=== PATIENT | male | born 1975 | race Hispanic/Latino ===

== ENCOUNTER 2023-01-16 15:52 | Observation (INO) | payer OTHER ==
[2023-01-16] MEDS ORDERED: LORazepam 2 MG/ML SYR.(CARPUJECT) ONE (16:08)
[2023-01-16 16:41] LABS: #Eosinphils 0.1 thou/uL (0.0-0.7); #Monocytes 0.7 thou/uL (0.11-0.59); #Neutrophils 3.7 thou/uL (1.40-6.50); %Basophils 0.4 % (0.0-1.0); %Eosinophils 1.3 % (0.0-10.0); %Lymphocytes 15.8 % (21.0-51.0); %Monocytes 12.4 % (0.0-10.0); %Neutrophils 69.2 % (42.0-75.0); Hematocrit 44.4 % (42.0-52.0); Hemoglobin 15.2 g/dL (14.0-18.0); Mean Corpuscular HGB CONC 34.2 g/dL (32.0-36.0); Mean Corpuscular Hemoglobin 31.6 pg (27.0-31.0); Mean Corpuscular Volume 92.3 fl (78.0-98.0); Mean Platelet Volume 10.3 fL (7.4-10.4); RBC Distribution Width 13.2 % (11.5-14.5); Red Blood Cell (RBC) Count 4.81 mill/uL (4.70-6.10); White Blood Cell (WBC) Count 5.3 10x3/uL (4.8-10.8)
[2023-01-16 16:42] LABS: Platelet Count 99 10x3/uL (130-400)
[2023-01-16 17:01] LABS: Acetaminophen Less than 10 mcg/mL (10.0-30.0); Alcohol Less than 10.0 mg/dL (Less than 10); Salicylate Less than 8.0 mg/dL (15.0-30.0)
[2023-01-16 17:08] LABS: ALT (SGPT) 128 U/L (8-55); AST (SGOT) 172 U/L (5-34); Albumin 4.4 g/dL (3.5-5.0); Alkaline Phosphatase 132 U/L (40-110); Anion Gap 23 mmol/L (10-20); BUN (Urea Nitrogen) Less than 4 mg/dL (8.9-20.6); Bilirubin, Total 1.8 mg/dL (0.2-1.2); CK (CPK) 568 U/L (30-200); Calc. Creatinine Clearance 0 mL/min (70-130); Calcium 9.1 mg/dL (7.8-10.44); Carbon Dioxide 18 mmol/L (22-29); Chloride 97 mmol/L (98-107); Estimated GFR 75; Globulin 3.1 g/dL (2.4-3.5); Glucose 182 mg/dL (70-105); Protein, Total 7.5 g/dL (6.0-8.3); Sodium 135 mmol/L (136-145)
[2023-01-16 17:10] LABS: Troponin I Less than 0.010 ng/mL (< 0.028)
[2023-01-16] MEDS ORDERED: Potassium Chloride 20 MEQ TAB ONE (17:26)
[2023-01-16 17:42] LABS: Bacteria/HPF None Seen HPF (None Seen); Bilirubin Negative (Negative); Blood, Urine Negative (Negative); CAUTI Indications for Culture Alt mental st,lethar; Clarity Clear (Clear); Glucose, Urine (Dipstick) 300 mg/dL (Negative); Ketone, Urine 10 mg/dL (Negative); Leukocyte Negative Leu/uL (Negative); Nitrite Negative (Negative); Protein, Urine (Dipstick) 20 mg/dL (Neg-Trace); RBC/HPF 0-3 HPF (0-3); Specific Gravity, Urine 1.011 (1.002-1.036); Squamous Epithelial None Seen HPF (0-3); Urobilinogen Normal mg/dL (Less than 2); WBC/HPF 0-3 HPF (0-3); pH, Urine 6.5 (5.0-9.0)
[2023-01-16 17:43] LABS: Urine Culture Reflex No No
[2023-01-16 17:48] LABS: Amphetamine Not Detected (NotDetected); Barbiturates Screen Not Detected (NotDetected); Benzodiazepine Screen Not Detected (NotDetected); Cocaine Metabolite Screen Not Detected (NotDetected); Methadone Not Detected (NotDetected); Methamphetamine Not Detected (NotDetected); Opiate Screen Not Detected (NotDetected); Oxycodone Screen Not Detected (NotDetected); Phencyclidine (PCP) Not Detected (NotDetected); THC/Cannabinoid Screen Not Detected (NotDetected); Tricyclic Screen Not Detected (NotDetected)
[2023-01-16] MEDS ORDERED: HYDROcodone/Acetaminophen 5/325 mg Tablet PO PRN (17:58)
[2023-01-16] MEDS ORDERED: Acetaminophen 325 MG TAB PO PRN (17:58)
[2023-01-16] MEDS ORDERED: Ondansetron PF 4 MG/2 ML Vial IVP PRN (17:58)
[2023-01-16] MEDS ORDERED: Lorazepam 1 MG TAB PO PRN (18:51)
[2023-01-16] MEDS ORDERED: Lorazepam 2 MG/ML VIAL IM PRN (18:51)
[2023-01-16] MEDS ORDERED: Potassium Chloride 20 MEQ TAB PO SCH (19:00)
[2023-01-16] MEDS ORDERED: Electrolyte Replacement Protocol 1 EACH FS SCH (19:00)
[2023-01-16] MEDS ORDERED: Magnesium 2 GM/50 ML(in water) 2 GM in Premix Bag 1 BAG IVPB SCH (19:00)
[2023-01-16] MEDS ORDERED: Sodium Bicarb 50 MEQ/50 ML Abboject 8.4% SYRINGE IVP SCH (19:15)
[2023-01-16] MEDS: chlordiazePOXIDE HCl 5 MG CAP PO SCH (20:28)
[2023-01-16] MEDS: Famotidine 20 MG TAB PO SCH (20:28)
[2023-01-16] MEDS: Lorazepam 1 MG TAB PO SCH (20:28)
[2023-01-16] MEDS: Heparin 5,000 UNITS/ML VIAL SC SCH (20:29)
[2023-01-16] MEDS ORDERED: Sodium Bicarb 50 MEQ/50 ML VIAL IVP SCH (20:30)
[2023-01-16 21:14] VITALS: BMI 29.9
[2023-01-17] MEDS: Lorazepam 1 MG TAB PO SCH ×3 (02:08→12:26)
[2023-01-17 04:59] LABS: #Eosinphils 0.1 thou/uL (0.0-0.7); #Monocytes 1.1 thou/uL (0.11-0.59); #Neutrophils 5.6 thou/uL (1.40-6.50); %Basophils 0.2 % (0.0-1.0); %Eosinophils 1.6 % (0.0-10.0); %Lymphocytes 18.4 % (21.0-51.0); %Monocytes 12.7 % (0.0-10.0); %Neutrophils 66.6 % (42.0-75.0); Hematocrit 44.3 % (42.0-52.0); Hemoglobin 15.2 g/dL (14.0-18.0); Mean Corpuscular HGB CONC 34.3 g/dL (32.0-36.0); Mean Corpuscular Hemoglobin 31.5 pg (27.0-31.0); Mean Corpuscular Volume 91.9 fl (78.0-98.0); Mean Platelet Volume 11.1 fL (7.4-10.4); RBC Distribution Width 13.2 % (11.5-14.5); Red Blood Cell (RBC) Count 4.82 mill/uL (4.70-6.10); White Blood Cell (WBC) Count 8.4 10x3/uL (4.8-10.8)
[2023-01-17 05:06] LABS: Hemoglobin A1c 5.3 % (4.0-6.0); Platelet Count 89 10x3/uL (130-400)
[2023-01-17 05:25] LABS: ALT (SGPT) 154 U/L (8-55); AST (SGOT) 257 U/L (5-34); Albumin 4.4 g/dL (3.5-5.0); Alkaline Phosphatase 130 U/L (40-110); Anion Gap 20 mmol/L (10-20); BUN (Urea Nitrogen) Less than 4 mg/dL (8.9-20.6); Bilirubin, Total 3.1 mg/dL (0.2-1.2); CK (CPK) 1519 U/L (30-200); Calc. Creatinine Clearance 113 mL/min (70-130); Calcium 9.4 mg/dL (7.8-10.44); Carbon Dioxide 26 mmol/L (22-29); Cardiac Risk 2.8 (Less than 4.5); Chloride 94 mmol/L (98-107); Cholesterol 328 mg/dl (< 200 Desired); Estimated GFR 103; Globulin 3.5 g/dL (2.4-3.5); Glucose 143 mg/dL (70-105); HDL Cholesterol 116 mg/dL (>60 Neg Risk); LDL Cholesterol, Calculated 180 mg/dL; Magnesium 2.5 mg/dL (1.6-2.6); Potassium 3.7 mmol/L (3.5-5.1); Protein, Total 7.9 g/dL (6.0-8.3); Sodium 136 mmol/L (136-145); Triglycerides 162 mg/dL (Less than 150)
[2023-01-17] MEDS: chlordiazePOXIDE HCl 5 MG CAP PO SCH ×2 (08:45→15:18)
[2023-01-17] MEDS: Famotidine 20 MG TAB PO SCH (08:46)
[2023-01-17] MEDS: Heparin 5,000 UNITS/ML VIAL SC SCH (08:46)
[2023-01-17] MEDS ORDERED: Multivit, Therapeutic 1 TAB PO SCH (09:00)
[2023-01-17] MEDS ORDERED: Folic Acid 1 MG TAB PO SCH (09:00)
[2023-01-17 11:42] VITALS: BP 129/74; TEMP 98.5
[2023-01-17] MEDS ORDERED: Lorazepam 1 MG TAB PO PRN (18:52)
[2023-01-18] MEDS ORDERED: Lorazepam 1 MG TAB PO PRN (18:52)
[2023-01-18] MEDS ORDERED: Lorazepam 0.5 MG TAB PO SCH (19:00)
[2023-01-19] MEDS ORDERED: Lorazepam 0.5 MG TAB PO PRN (18:52)
[2023-01-19] MEDS ORDERED: Thiamine 100 MG TAB PO SCH (19:00)
== END 2023-01-17 15:26 | disposition home or self-care (01) ==
LOC: ERS 15:52 → 2SW 18:01
PROVIDERS: ADMIT Internal Medicine; ATTEND Internal Medicine
DX: R56.9 Unspecified convulsions (principal); F10.10 Alcohol abuse, uncomplicated; K70.9 Alcoholic liver disease, unspecified; I10 Essential (primary) hypertension; E87.6 Hypokalemia; D69.6 Thrombocytopenia, unspecified; E87.20 Acidosis, unspecified; M62.82 Rhabdomyolysis; Z98.890 Other specified postprocedural states; Z79.899 Other long term (current) drug therapy
CPT/HCPCS: 36415; 70450; 80053; 80061; 80306; 80307; 81001; 82550; 83036; 83735; 84443; 84484; 85025; 93005; 93306; 94760; 96361; 96374; 96375; G0378; J1644; J2060; J3475